=== PATIENT | female | born 1950 | race African-American/Black ===

== ENCOUNTER → 2021-11-10 | Day surgery (SDC) | payer MEDICARE ==
[~2021-11-10] VITALS: Ht 170.2 cm; Wt 159.9 kg
[~2021-11-10] MED LIST: AMLO-187 PO; ASPI-630 PO; CHOL10004 PO; CRESTOR40 MG PO; DULA0.75 SQ; IV RINGERS,LACTATED 1000ML 1,000 ML IV SCH; LEVO125T5 PO; LOSA-73 PO; METF500T16 PO; MULT-245 PO; PROP40TA PO; PROPOFOL 10 MG/ML (20ML) VIAL. IV ONE; VITA1TAB19 PO; fentaNYL PF VIAL 100 MCG/2 ML VIAL IVP PRN
[2021-11-10 06:22] VITALS: BP 168/77
[2021-11-10 07:45] VITALS: BP 148/75
--- NOTE | 2021-11-13 14:21 | PATHOLOGY ---
[facility] Accession Number: [id number] . 01 Material submitted: . PART A: colon - DESCENDING COLON POLYP BIOPSY PART B: colon - ASCENDING COLON POLYP BIOPSY . 01 Clinical history: . HX POLYPS . 02 Diagnosis: A. Colon biopsies, descending colon polyp: - Tubular adenoma. . B. Colon biopsy, ascending colon polyp: - Tubular adenoma. . ([facility]:mm; 11/13/2021) [facility] 11/13/2021 1120 Local . 02 Comment: There is no high grade dysplasia or evidence of malignancy. . ([facility]:mml; 11/13/2021) . 02 Electronically signed: . Danilo Valencia MD, Pathologist NPI- [id number] . 01 Gross description: . A. The specimen is received in formalin, labeled "Bianca Mccluney, descending colon polyp bx". Received are 3, romero-pink, soft tissue fragments, ranging in size from 0.2-0.4 cm, in greatest dimension. The specimen is submitted entirely in A1. . B. The specimen is received in formalin, labeled "Bianca Mccluney, ascending colon polyp bx". Received is a single, romero-pink, soft tissue fragment, measuring 0.5 cm, in greatest dimension. The specimen is submitted entirely in B1. ([facility]; 11/10/2021) [facility] 11/10/2021 1906 Local . 02 Pathologist provided ICD-10: D12.4, D12.2 . 02 CPT . 268774, 333759 Specimen Comment: A courtesy copy of this report has been sent to [phone] Specimen Comment: Report sent to Specimen Comment: A duplicate report has been generated due to demographic updates. Performed at: 01 [facility] [address] [facility] [address], [place] [id number] MD Clay Aguirre MD Phone: [phone] Performed at: 02 [facility] [address] [place], [place] [id number] MD Danilo Valencia MD Phone: [phone]
== END | disposition home or self-care (01) ==
LOC: ENDOS 05:48
PROVIDERS: ATTEND Internal Medicine Gastroenterology
DX: Z12.11 Encounter for screening for malignant neoplasm of colon (principal); K64.0 First degree hemorrhoids; K57.30 Diverticulosis of large intestine without perforation or abscess without bleeding; D12.2 Benign neoplasm of ascending colon; D12.4 Benign neoplasm of descending colon; K63.89 Other specified diseases of intestine; I10 Essential (primary) hypertension; E78.00 Pure hypercholesterolemia, unspecified; G47.30 Sleep apnea, unspecified; E11.9 Type 2 diabetes mellitus without complications; E03.9 Hypothyroidism, unspecified; M19.90 Unspecified osteoarthritis, unspecified site; F41.9 Anxiety disorder, unspecified; Z90.710 Acquired absence of both cervix and uterus; Z98.51 Tubal ligation status; Z98.890 Other specified postprocedural states; Z79.82 Long term (current) use of aspirin; Z79.84 Long term (current) use of oral hypoglycemic drugs; Z79.899 Other long term (current) drug therapy; Z88.8 Allergy status to other drugs, medicaments and biological substances; Z86.010 Personal history of colon polyps
CPT/HCPCS: 45380; 88305; J2704